=== PATIENT | female | born 1995 | race Caucasian/White ===

== ENCOUNTER 2023-05-08 06:15 | Inpatient (IN) | payer OTHER ==
[2023-05-08 07:04] VITALS: BMI 39.4
[2023-05-08] MEDS ORDERED: morphine SULFATE/PF 1 MG/2 ML (2cc Syringe - QUVA) EP ONE (07:48)
[2023-05-08] MEDS ORDERED: IBUPROFEN 600 MG TABLET (FP) PO PRN (07:48)
[2023-05-08] MEDS ORDERED: ACETAMINOPHEN 325 MG TABLET (FP) PO PRN ×2 (07:48→08:11)
[2023-05-08] MEDS ORDERED: CITRIC ACID/SODIUM CITRATE 30 ML UNIT-DOSE CUP PO ONE (07:59)
[2023-05-08] MEDS ORDERED: ELECTROLYTE-148 SOLN 500 ML IV ONE (07:59)
[2023-05-08] MEDS ORDERED: ELECTROLYTE-148 SOLN 1,000 ML IV SCH (08:00)
[2023-05-08] MEDS ORDERED: IBUPROFEN 800 MG/8 ML IJ IVPB PRN (08:11)
[2023-05-08] MEDS ORDERED: METHYLERGONOVINE MALEATE 0.2 MG/1 ML AMP IM PRN (08:11)
[2023-05-08] MEDS ORDERED: OXYTOCIN 20 UNITS in 0.9% NS 20 UNIT/1,000 ML INFUS.BAG IV SCH (08:15)
[2023-05-08] MEDS ORDERED: ACETAMINOPHEN 1000 MG/100 ML BAG IVPB PRN (08:16)
[2023-05-08] MEDS ORDERED: OXYTOCIN 20 UNITS in 0.9% NS 20 UNIT/1,000 ML INFUS.BAG IV ONE (10:05)
[2023-05-08] MEDS ORDERED: ONDANSETRON 4 MG/2 ML VIAL ONE (11:41)
[2023-05-08] MEDS: ONDANSETRON 4 MG/2 ML VIAL IVPUSH PRN ×3 (11:46→21:36)
[2023-05-08] MEDS: LABETALOL HCL 200 MG TABLET (FP) PO SCH ×2 (12:31→21:21)
[2023-05-08] MEDS: PRENATAL VITAMINS W/ FOLIC ACID TABLET (FP) PO SCH (12:32)
[2023-05-08] MEDS ORDERED: oxyCODONE HCL 5 MG TABLET PO PRN (20:11)
[2023-05-09] MEDS ORDERED: BISACODYL 10 MG SUPP.RECT RC PRN (08:11)
[2023-05-09 09:22] LABS: BASO % 0.2 % (0-2.0); EOS % 1.1 % (0-4.5); HEMATOCRIT 35.8 % (32.4-45.2); LYMPH % 19.4 % (8-40); MCH 30.9 pg (25.7-33.7); MCHC 33.6 g/dl (32.0-36.0); MEAN PLT VOLUME 8.7 fl (7.5-11.1); MONO % 5.5 % (3.8-10.2); NEUT % 73.8 % (42.8-82.8); PLATELET COUNT 195 10^3/uL (134-434); RBC 3.89 M/mm3 (3.60-5.2); RDW 14.4 % (11.6-15.6); WHITE BLOOD COUNT 8.3 K/mm3 (4.0-10.0)
[2023-05-09] MEDS: LABETALOL HCL 200 MG TABLET (FP) PO SCH ×2 (10:41→21:15)
[2023-05-09] MEDS: SIMETHICONE 80 MG TAB.CHEW (FP) PO PRN ×2 (10:44→21:21)
[2023-05-09] MEDS: IBUPROFEN 600 MG TABLET (FP) PO PRN (10:44)
[2023-05-09] MEDS: FERROUS SO4 325 MG TABLET (FP) PO SCH ×2 (10:44→21:21)
[2023-05-09] MEDS: PRENATAL VITAMINS W/ FOLIC ACID TABLET (FP) PO SCH (10:44)
[2023-05-09] MEDS: SENNOSIDES/DOCUSATE COMBO (SENNA PLUS) TABLET (UD) PO PRN (21:20)
[2023-05-09] MEDS: oxyCODONE HCL 5 MG TABLET PO PRN (21:21)
[2023-05-10] MEDS: oxyCODONE HCL 5 MG TABLET PO PRN (02:30)
[2023-05-10] MEDS: SIMETHICONE 80 MG TAB.CHEW (FP) PO PRN ×3 (02:30→21:10)
[2023-05-10] MEDS: PRENATAL VITAMINS W/ FOLIC ACID TABLET (FP) PO SCH (09:57)
[2023-05-10] MEDS: LABETALOL HCL 200 MG TABLET (FP) PO SCH ×2 (09:58→21:13)
[2023-05-10] MEDS: FERROUS SO4 325 MG TABLET (FP) PO SCH ×2 (09:58→21:10)
[2023-05-10] MEDS: IBUPROFEN 600 MG TABLET (FP) PO PRN ×2 (09:58→21:10)
[2023-05-10] MEDS: SENNOSIDES/DOCUSATE COMBO (SENNA PLUS) TABLET (UD) PO PRN (21:10)
[2023-05-11 02:12] VITALS: RESP 18
[2023-05-11] MEDS: IBUPROFEN 600 MG TABLET (FP) PO PRN (06:23)
[2023-05-11] MEDS: SIMETHICONE 80 MG TAB.CHEW (FP) PO PRN (06:23)
[2023-05-11] MEDS: PRENATAL VITAMINS W/ FOLIC ACID TABLET (FP) PO SCH (09:37)
[2023-05-11] MEDS: FERROUS SO4 325 MG TABLET (FP) PO SCH (09:37)
[2023-05-11] MEDS: LABETALOL HCL 200 MG TABLET (FP) PO SCH (09:40)
[2023-05-11 11:35] VITALS: BP 121/77; PULSE 79; TEMP 98
== END 2023-05-11 13:40 | disposition home or self-care (01) | DRG 540 ==
LOC: JLDR 06:15 → J3W 11:50
PROVIDERS: ADMIT Obstetrics & Gynecology; ATTEND Obstetrics & Gynecology
PROC: 10D00Z1 Extraction of Products of Conception, Low, Open Approach (ICD-10-PCS; principal; 2023-05-08)
DX: O34.211 Maternal care for low transverse scar from previous cesarean delivery (principal); N85.8 Other specified noninflammatory disorders of uterus; Z3A.39 39 weeks gestation of pregnancy; Z37.0 Single live birth
CPT/HCPCS: 36415; 85025; 88307-TC